=== PATIENT | female | born 1950 | race African-American/Black ===

== ENCOUNTER 2018-02-19 12:45 | Emergency (ER) | payer OTHER ==
[2018-02-19 13:55] LABS: Absolute Lymphocytes (CBC) 1.6 K/uL (0.7-4.9); Absolute Monocytes 0.5 K/uL (0.1-1.3); Absolute Neutrophil 2.4 K/uL (1.8-8.0); Basophils % 0.3 % (0-1.3); Eosinophils % 4.1 % (0-4.4); Lymphocytes % 33.8 % (15.3-44.8); MCH 26.4 pg (27.0-35.0); MCV 78.6 fL (80-100); MPV 9.7 fL (7.6-11.3); Monocytes % 11.1 % (3.3-12.3); RBC Red Blood Cell Count 4.96 M/uL (3.86-4.86)
[2018-02-19 14:03] LABS: Protime INR 1.05
[2018-02-19 14:13] LABS: Albumin 3.7 g/dL (3.4-5.0); Bilirubin Direct 0.1 mg/dL (0-0.2); Bilirubin Total 0.5 mg/dL (0.2-1.0); Magnesium 2.1 mg/dL (1.8-2.4); Protein, Total 7.3 g/dL (6.4-8.2)
[2018-02-19] MEDS ORDERED: POTASSIUM 25 MEQ EFFERV TAB ONE (14:31)
[2018-02-19] MEDS ORDERED: POTASSIUM CL SA 10 MEQ TAB PO ONE (14:34)
--- NOTE | 2018-02-19 14:45 | ER ---
Nurse's Notes [facility] Name: Gabbi Camp Age: 67 yrs Sex: Female : 1950 Arrival Date: 02/19/2018 Time: 12:48 Bed 19 Private MD: Douglas Guan T Diagnosis: Shortness of breath Presentation: 02/19 12:56 Presenting complaint: Patient states: Chest pain for 2 months that occurs at night aj between 1-2 AM while patient is asleep. Patient sent to ER by PCP after being evaluated for this concern in office, and having labs drawn. Transition of care: patient was not received from another setting of care. Onset of symptoms was December 2017. Risk Assessment: Do you want to hurt yourself or someone else? Patient reports no desire to harm self or others. Initial Sepsis Screen: Does the patient meet any 2 criteria? No. Patient's initial sepsis screen is negative. Does the patient have a suspected source of infection? No. Patient's initial sepsis screen is negative. Care prior to arrival: None. 12:56 Method Of Arrival: Wheelchair aj 12:56 Acuity: KRISTIN 3 aj Triage Assessment: 12:59 General: Appears in no apparent distress. comfortable, Behavior is calm, cooperative, aj appropriate for age. Pain: Denies pain. Neuro: Level of Consciousness is awake, alert, obeys commands, Oriented to person, place, time, situation, Appropriate for age. Respiratory: Reports Airway is patent Respiratory effort is even, unlabored, Respiratory pattern is regular, symmetrical, Onset: The symptoms/episode began/occurred the patient has mild shortness of breath. Derm: Skin is intact, is healthy with good turgor, Skin is pink, warm \T\ dry. normal. Historical: - Allergies: 12:59 No Known Allergies; aj - PMHx: 12:59 Hypertension; aj - PSHx: 12:59 Tubal ligation; aj - Immunization history:: Adult Immunizations up to date. - Social history:: Smoking status: Patient/guardian denies using tobacco. - Ebola Screening: : Patient negative for fever greater than or equal to 101.5 degrees Fahrenheit, and additional compatible Ebola Virus Disease symptoms Patient denies exposure to infectious person Patient denies travel to an Ebola-affected area in the 21 days before illness onset No symptoms or risks identified at this time. Screenin:59 Abuse screen: Denies threats or abuse. Denies injuries from another. Nutritional cc3 screening: No deficits noted. Tuberculosis screening: No symptoms or risk factors identified. Fall Risk IV access (20 points). Assessment: 13:30 General: Appears in no apparent distress. comfortable, well groomed, Behavior is calm, cc3 cooperative. 13:30 Pain: Complains of pain in left knee. Neuro: Level of Consciousness is Oriented to cc3 person, place, time, situation, Appropriate for age. Cardiovascular: Capillary refill < 3 seconds Rhythm is regular Chest pain is denied. Respiratory: Airway is patent Respiratory effort is even, unlabored, Respiratory pattern is regular, symmetrical, Breath sounds are clear bilaterally. GI: Abdomen is non-distended, Patient currently denies abdominal pain. : No signs and/or symptoms were reported regarding the genitourinary system. EENT: No signs and/or symptoms were reported regarding the EENT system. Derm: No signs and/or symptoms reported regarding the dermatologic system. Musculoskeletal: Reports pain in left knee. Vital Signs: 12:59 BP 145 / 89; Pulse 86; Resp 20; Temp 97.9; Pulse Ox 98% on R/A; Weight 102.06 kg; aj Height 5 ft. 7 in. (170.18 cm); 13:50 BP 138 / 72; Pulse 77; Resp 18; Pulse Ox 98% on R/A; cc3 12:59 Body Mass Index 35.24 (102.06 kg, 170.18 cm) aj ED Course: 12:48 Patient arrived in ED. rg4 12:48 Douglas Guan MD is Private Physician. rg4 12:57 Bill Brandon PA is PHCP. jr8 12:57 Jeffy Vincent MD is Attending Physician. jr8 12:58 Triage completed. aj 12:59 Arm band placed on left wrist. Patient placed in an exam room. aj 13:26 EKG done, by cytotechnologist. reviewed by Bill DE ANDA. sm3 13:45 Inserted saline lock: 22 gauge in left antecubital area, using aseptic technique. Blood cc3 collected. 13:49 XRAY Chest (1 view) In Process Unspecified. EDMS 13:55 Guillaume Escobar, JUNE is Primary Nurse. hj 14:01 Patient has correct armband on for positive identification. Placed in gown. Bed in low cc3 position. Call light in reach. Side rails up X2. Adult w/ patient. 14:44 Terrance Lind MD is Referral Physician. jr8 15:10 No provider procedures requiring assistance completed. IV discontinued, intact, hj bleeding controlled, No redness/swelling at site. Pressure dressing applied. Administered Medications: 14:22 Drug: Potassium Chloride 40 mEq Route: PO; 15:10 Follow up: Response: No adverse reaction hj Outcome: 14:45 Discharge ordered by . jr8 15:10 Discharged to home ambulatory. hj 15:10 Condition: stable 15:10 Discharge instructions given to patient, Instructed on discharge instructions, follow up and referral plans. Demonstrated understanding of instructions, follow-up care. 15:10 Patient left the ED. Signatures: Dispatcher [employer] Laina Abreu, RN RN Bill Collins PA PA jr8 Guillaume Escobar RN RN hj Garcia, Rubi 4 Gretta Joshua 3 Elle Nino cc3
--- NOTE | 2018-02-19 14:45 | EDPHYS ---
Physician Documentation [facility] Name: Gabbi Camp Age: 67 yrs Sex: Female : 1950 Arrival Date: 02/19/2018 Time: 12:48 Bed 19 Private MD: Douglas Guan T ED Physician Jeffy Vincent HPI: 02/19 13:57 This 67 yrs old Black Female presents to ER via Wheelchair with complaints of CHEST jr8 DISCOMFORT, Shortness Of Breath. 13:57 The patient has shortness of breath at rest, with light activity. Onset: The jr8 symptoms/episode began/occurred gradually, 1 month(s) ago. Duration: The symptoms are intermittent. The patient's shortness of breath is aggravated by walking. Associated signs and symptoms: The patient has no apparent associated signs or symptoms. Severity of symptoms: At their worst the symptoms were mild in the emergency department the symptoms are unchanged. The patient has not experienced similar symptoms in the past. The patient has not recently seen a physician. stated that for the past month or so has had intermittent shortness of breath with walking. Has paroxysmal nocturnal dyspnea as well. Denies chest pain, dizziness, syncope . Historical: - Allergies: 12:59 No Known Allergies; aj - PMHx: 12:59 Hypertension; aj - PSHx: 12:59 Tubal ligation; aj - Immunization history:: Adult Immunizations up to date. - Social history:: Smoking status: Patient/guardian denies using tobacco. - Ebola Screening: : Patient negative for fever greater than or equal to 101.5 degrees Fahrenheit, and additional compatible Ebola Virus Disease symptoms Patient denies exposure to infectious person Patient denies travel to an Ebola-affected area in the 21 days before illness onset No symptoms or risks identified at this time. ROS: 13:57 Eyes: Negative for injury, pain, redness, and discharge, ENT: Negative for injury, jr8 pain, and discharge, Neck: Negative for injury, pain, and swelling, Cardiovascular: Negative for chest pain, palpitations, and edema, Abdomen/GI: Negative for abdominal pain, nausea, vomiting, diarrhea, and constipation, Back: Negative for injury and pain, MS/Extremity: Negative for injury and deformity, Skin: Negative for injury, rash, and discoloration, Neuro: Negative for headache, weakness, numbness, tingling, and seizure. 13:57 Cardiovascular: 13:57 Respiratory: Positive for dyspnea on exertion, shortness of breath. Exam: 13:57 Eyes: Pupils equal round and reactive to light, extra-ocular motions intact. Lids and jr8 lashes normal. Conjunctiva and sclera are non-icteric and not injected. Cornea within normal limits. Periorbital areas with no swelling, redness, or edema. ENT: Nares patent. No nasal discharge, no septal abnormalities noted. Tympanic membranes are normal and external auditory canals are clear. Oropharynx with no redness, swelling, or masses, exudates, or evidence of obstruction, uvula midline. Mucous membranes moist. Neck: Trachea midline, no thyromegaly or masses palpated, and no cervical lymphadenopathy. Supple, full range of motion without nuchal rigidity, or vertebral point tenderness. No Meningismus. Cardiovascular: Regular rate and rhythm with a normal S1 and S2. No gallops, murmurs, or rubs. Normal PMI, no JVD. No pulse deficits. Respiratory: Lungs have equal breath sounds bilaterally, clear to auscultation and percussion. No rales, rhonchi or wheezes noted. No increased work of breathing, no retractions or nasal flaring. Abdomen/GI: Soft, non-tender, with normal bowel sounds. No distension or tympany. No guarding or rebound. No evidence of tenderness throughout. Back: No spinal tenderness. No costovertebral tenderness. Full range of motion. Skin: Warm, dry with normal turgor. Normal color with no rashes, no lesions, and no evidence of cellulitis. MS/ Extremity: Pulses equal, no cyanosis. Neurovascular intact. Full, normal range of motion. Neuro: Awake and alert, GCS 15, oriented to person, place, time, and situation. Cranial nerves II-XII grossly intact. Motor strength 5/5 in all extremities. Sensory grossly intact. Cerebellar exam normal. Normal gait. Vital Signs: 12:59 BP 145 / 89; Pulse 86; Resp 20; Temp 97.9; Pulse Ox 98% on R/A; Weight 102.06 kg; aj Height 5 ft. 7 in. (170.18 cm); 13:50 BP 138 / 72; Pulse 77; Resp 18; Pulse Ox 98% on R/A; cc3 12:59 Body Mass Index 35.24 (102.06 kg, 170.18 cm) aj MDM: 12:57 Patient medically screened. jr8 14:43 Data reviewed: vital signs, nurses notes, lab test result(s), EKG, radiologic studies, jr8 plain films, and as a result, I will discharge patient. Data interpreted: Pulse oximetry: on room air is 98 %. Interpretation: normal. 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 14:43 Differential diagnosis: Anxiety Reaction CHF exacerbation, Chronic Obstructive jr8 Pulmonary Disease Myocardial Infarction pneumonia, pulmonary edema, Pulmonary Embolism reactive airway disease, cardiomyopathy, sleep apnea. 14:45 ED course: Discussed with patient that we could not find any acute finding that would jr8 be causing her shortness of breath at this time. Patient needs to f/u with cardiology again for further evaluation. If worse to come back . 02/19 13:10 Order name: Basic Metabolic Panel; Complete Time: 14:22 02/19 13:10 Order name: CBC with Diff; Complete Time: 14:43 02/19 13:10 Order name: LFT's; Complete Time: 14:22 02/19 13:10 Order name: Magnesium; Complete Time: 14:22 02/19 13:10 Order name: NT PRO-BNP; Complete Time: 14:22 02/19 13:10 Order name: PT-INR; Complete Time: 14:22 02/19 13:10 Order name: Troponin (emerg Dept Use Only); Complete Time: 14:22 02/19 13:10 Order name: XRAY Chest (1 view) 02/19 13:10 Order name: EKG; Complete Time: 13:11 02/19 13:10 Order name: Cardiac monitoring; Complete Time: 13:12 02/19 13:10 Order name: EKG - Nurse/Tech; Complete Time: 13:28 02/19 13:10 Order name: IV Saline Lock; Complete Time: 14:22 02/19 13:10 Order name: Labs collected and sent; Complete Time: 14:22 8 02/19 13:10 Order name: O2 Per Protocol; Complete Time: 13:13 8 02/19 13:10 Order name: O2 Sat Monitoring; Complete Time: 13:13 Administered Medications: 14:22 Drug: Potassium Chloride 40 mEq Route: PO; hj 15:10 Follow up: Response: No adverse reaction Disposition: 16:17 Co-signature as Attending Physician, Jeffy Vincent MD. rn Disposition: 02/19/18 14:45 Discharged to Home. Impression: Shortness of breath. - Condition is Stable. - Discharge Instructions: Shortness of Breath. - Medication Reconciliation Form, Thank You Letter, Antibiotic Education, Prescription Opioid Use form. - Follow up: Terrance Lind MD; When: 2 - 3 days; Reason: Recheck today's complaints, Continuance of care, Re-evaluation by your physician. - Problem is new. - Symptoms have improved. Signatures: Dispatcher [employer] EDAR Laina Naranjo RN Jeffy Carbone MD MD rn Roszak, Josh, PA PA 8 Guillaume Escobar RN RN Corrections: (The following items were deleted from the chart) 15:10 14:45 02/19/2018 14:45 Discharged to Home. Impression: Shortness of breath. Condition hj is Stable. Forms are Medication Reconciliation Form, Thank You Letter, Antibiotic Education, Prescription Opioid Use. Follow up: Terrance Lind; When: 2 - 3 days; Reason: Recheck today's complaints, Continuance of care, Re-evaluation by your physician. Problem is new. Symptoms have improved. jr8
--- NOTE | 2018-02-19 15:57 | RAD REPORT ---
EXAM DESCRIPTION: [place] Single View02/19/2018 1:49 pm CLINICAL HISTORY: Chest pain COMPARISON: 2017 FINDINGS: The lungs appear clear of acute infiltrate. The heart is normal size IMPRESSION: No acute abnormalities displayed
--- NOTE | 2018-02-19 16:38 | EKG ---
Test Date: 2018-02-19 Test Time: 13:20:49 [place] Operator: JOHN MEASUREMENT RESULTS: Intervals: Rate: 65 UT: 164 QRSD: 92 QT: 468 QTc: 486 [place]: P: 7 UT: 164 QRS: 5 T: 33 INTERPRETIVE STATEMENTS: Normal sinus rhythm Normal ECG Compared to ECG 11/06/2016 16:17:38 no significant change from previous ECG Electronically Signed On 02-19-18 16:38:13 CDT by Bandar Ferguson
== END 2018-02-19 15:10 | disposition home or self-care (01) ==
LOC: ER 12:45
DX: R06.02 Shortness of breath (principal); I10 Essential (primary) hypertension
CPT/HCPCS: 36415; 71045; 80048; 80076; 83735; 83880; 84484; 85025; 85610; 93005; 99284

== ENCOUNTER 2021-11-27 06:48 | Day surgery (SDC) | payer OTHER ==
[2021-11-23 14:48] LABS: Hematocrit 37.2 % (36.0-45.0); Lymphocytes % 38.5 % (15.3-44.8); MPV 8.8 fL (7.6-11.3); RBC Red Blood Cell Count 4.74 M/uL (3.86-4.86)
--- NOTE | 2021-11-23 14:53 | RAD REPORT ---
EXAM DESCRIPTION: RAD - Chest Pa And Lat (2 Views) - 11/23/2021 2:46 pm CLINICAL HISTORY: Pre op pending heart cath Chest pain. COMPARISON: Chest Pa And Lat (2 Views) dated 02/09/2021; Chest Single View dated 02/19/2018; Chest Sing le View dated 11/06/2016 FINDINGS: The lungs are clear. The heart is normal in size. No displaced fractures. IMPRESSION: No acute or concerning finding suspected.
[2021-11-23 15:02] LABS: Potassium 3.8 mmol/L (3.5-5.1)
[2021-11-23 15:42] LABS: Protime INR 0.99
--- NOTE | 2021-11-26 10:09 | EKG ---
Test Date: 2021-11-23 Test Time: 13:25:09 [place] Technician: GAYLA MEASUREMENT RESULTS: Intervals: Rate: 57 VA: 172 QRSD: 86 QT: 468 QTc: 455 [place]: P: 20 VA: 172 QRS: -1 T: 31 INTERPRETIVE STATEMENTS: Sinus bradycardia Minimal voltage criteria for LVH, may be normal variant Nonspecific T wave abnormality Abnormal ECG Compared to ECG 02/19/2018 13:20:49 Left ventricular hypertrophy now present T-wave abnormality now present Sinus rhythm no longer present Electronically Signed On 11-26-21 10:03:08 CDT by Terrance Lind
[~2021-11-27 06:48] MED LIST: NA CHLORIDE 0.9% 500 ML ONE
[2021-11-27] MEDS ORDERED: MIDAZOLAM HCL 2 MG/2 ML INJ ONE ×2 (06:50→07:23)
[2021-11-27] MEDS ORDERED: NITROGLYCERIN 100 MCG/ML SYR (for cath lab use only) IV ONE (06:50)
[2021-11-27] MEDS ORDERED: NITROGLYCERIN/D5W 0 MG/0 ML BTL IV ONE (06:50)
[2021-11-27] MEDS ORDERED: ATROPINE SULF 1 MG/10 ML SYR IV ONE (06:50)
[2021-11-27] MEDS ORDERED: FENTANYL CITR 100 MCG/2 ML ONE (06:50)
[2021-11-27] MEDS ORDERED: NA CHLORIDE 0.9% 0 ML ONE (06:54)
[2021-11-27] MEDS ORDERED: LIDOCAINE 1% MPF 30 ML VIAL ONE (07:05)
[2021-11-27] MEDS ORDERED: HEPA 1000U/500MLS 1,000 UNIT/500 ML BAG IV ONE (07:05)
[2021-11-27 09:11] VITALS: O2SAT 100
[2021-11-27 09:33] VITALS: BP 138/71
--- NOTE | 2021-11-27 10:00 | OP ---
Surgeon: Terrance Lind MD [place] Counselor: Jerica Laguna. The patient will remain in the hospital for 2 hours of bedrest. She will go home and I will see her in the office in the very near future. 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 She underwent a left heart catheterization with selective coronary arteriogram. Indication: Unstable angina. Ms. Camp is a 71. Has had a classic symptoms of unstable angina. Wheeler d a history of moderate aortic stenosis, hypertension, obesity, gastroesophageal reflux disease. Miguel Angel eduled for left heart catheterization today in the field laborer. Procedure In Detail: She was brought in as an outpatient, prepped and draped in routine sterile fash ion. Given Versed and fentanyl for sedation. A 6-Upper Sorbian sheath introduced in the right common femor al artery successfully using 10 cc of Xylocaine and the Seldinger technique. Angiography there was n ormal. Angio-Seal was used to close the case. Gab catheter initially the JL4 was used and then the JL3.5 and was unsuccessful cannulating the left main. I had to use an Amplatz left AL1 catheter to cannulate the left main. She was found to have a normal left main, diffuse plaquing in the LAD, v zi large vessel, normal diagonal, completely occluded small circumflex. JR4 catheter cannulated the right main, which was very large, free of disease and very dominant. The patient tolerated the proc edure well. There were no complications. Blood Loss: 5 mL. Anesthesia: Total conscious sedation was 45 minutes. Postoperative Diagnoses: Severe coronary artery disease, totally occluded circumflex. Plan: Medical therapy. NB/MODL Voice ID: [id number] Report ID: [id number]
== END 2021-11-27 10:09 | disposition home or self-care (01) ==
LOC: CCL 06:48
DX: I25.110 Atherosclerotic heart disease of native coronary artery with unstable angina pectoris (principal); I25.82 Chronic total occlusion of coronary artery; I35.0 Nonrheumatic aortic (valve) stenosis; I10 Essential (primary) hypertension; K21.9 Gastro-esophageal reflux disease without esophagitis; E66.9 Obesity, unspecified; Z68.35 Body mass index [BMI] 35.0-35.9, adult; Z79.899 Other long term (current) drug therapy; Z20.822 Contact with and (suspected) exposure to COVID-19
CPT/HCPCS: 93005; 85025; 80048; 36415; 85610; 85730; 71046; 93454; U0003; C1893; Q9966; C1760; Q9967; G0269; J2250 ×2; J3010; J7040; J1644; J0583